=== PATIENT | female | born 1975 | race African-American/Black ===

== ENCOUNTER → 2024-03-16 14:07 | Outpatient (REF) | payer BC, SELFPAY | LOC: RAD 14:07 | PROVIDERS: ATTENDING PHYSICIAN Physician Assistant Medical | DX: R59.1 Generalized enlarged lymph nodes (principal) | CPT/HCPCS: 76536 ==

== ENCOUNTER → 2024-05-07 09:38 | Outpatient (REF) | payer BC, SELFPAY | LOC: RCS 09:38 | PROVIDERS: ATTENDING PHYSICIAN Internal Medicine Cardiovascular Disease; FAMILY PHYSICIAN Physician Assistant Medical | DX: R07.89 Other chest pain (principal) | CPT/HCPCS: 93017 ==

== ENCOUNTER → 2024-05-08 09:20 | Outpatient (REF) | payer BC, SELFPAY | LOC: WDC 09:20 | PROVIDERS: ATTENDING PHYSICIAN Physician Assistant Medical | DX: Z12.31 Encounter for screening mammogram for malignant neoplasm of breast (principal) | CPT/HCPCS: 77063; 77067 ==

== ENCOUNTER → 2024-05-25 13:07 | Outpatient (REF) | payer BC, SELFPAY | LOC: RCS 13:07 | PROVIDERS: ATTENDING PHYSICIAN Internal Medicine Cardiovascular Disease; FAMILY PHYSICIAN Physician Assistant Medical | DX: R07.89 Other chest pain (principal) | CPT/HCPCS: 93306 ==

== ENCOUNTER → 2024-06-05 14:47 | Outpatient (REF) | payer BC, SELFPAY | LOC: RAD 14:47 | PROVIDERS: ATTENDING PHYSICIAN Physician Assistant Medical | DX: R59.0 Localized enlarged lymph nodes (principal); M54.6 Pain in thoracic spine | CPT/HCPCS: 70491; 71046; 72072; Q9967 ==

== ENCOUNTER → 2025-08-31 14:25 | Outpatient (REF) | payer OTHER, SELFPAY | LOC: WDC 14:25 | PROVIDERS: ATTENDING PHYSICIAN Physician Assistant Medical | DX: Z12.31 Encounter for screening mammogram for malignant neoplasm of breast (principal) | CPT/HCPCS: 77063; 77067 ==